=== PATIENT | female | born 1985 | race Caucasian/White ===

== ENCOUNTER 2019-12-06 17:30 | Emergency (ER) | payer OTHER ==
[2019-12-06] MEDS ORDERED: TYLENOL 325 MG PO STA (17:42)
[2019-12-06] MEDS ORDERED: TYLENOL 325 MG ONE (17:45)
--- NOTE | 2019-12-06 17:49 | ERPHSYRPT ---
- History of Present Illness Source: patient Physician History: Patient is a 34-year-old female who presents to our ED with complaints of dental pain and request to check her blood pressure. Patient is 14 weeks . Patient denies any issues with her . No pelvic pain or vaginal discharge. No vaginal bleeding. Patient states she was recently diagnosed with a urinary tract infection and is currently on Keflex. Patient is aware that the Keflex will cover her teeth. Patient states that she currently has an appointment scheduled with a dentist on 29 December. Patient has been taken Tylenol for pain. Her last Tylenol was at 11 AM today. Patient is here more so for evaluation of her blood pressure. Patient checked her blood pressure today and observe that his systolic blood pressure was 155. Patient has a history of preeclampsia. Patient became concerned and came to our ED. No associated chest pain or shortness of breath. No nausea vomiting or diaphoresis. No rash. No fever. No cough. No difficulty swallowing or eating. Patient able to tolerate p.o. well. Patient concerned with her blood pressure primarily and is requesting to have this checked. Timing/Duration: days (Patient has been experiencing dental pain for the past 2 days. Patient is aware that the involved tooth is fractured. Patient currently has a dental appointment scheduled.) Severity: moderate ENT Location: mouth Prearrival Treatment: no prearrival treatment (Tylenol at 11 AM today.) Modifying Factors: Improves With: nothing Associated Symptoms: No cough, No fever, No chills, No drooling, No ear drainage, No facial pain/swelling, No headache, No hearing loss, No jaw pain, No nasal congestion/drainage, No nasal foreign body, No neck pain, No poor fluid intake, No poor solids intake, No ringing of ears, No swollen glands, No sinus infection, No sore throat, No tooth pain Allergies/Adverse Reactions: clindamycin Allergy (Verified 12/06/19 17:38) - Review of Systems Constitutional: No Symptoms, No Fever, No Chills Eyes: No Symptoms Ears, Nose, & Throat: No Symptoms Respiratory: No Symptoms, No Cough, No Dyspnea Cardiac: No Symptoms, No Chest Pain, No Edema, No Syncope Abdominal/Gastrointestinal: No Symptoms, No Abdominal Pain, No Nausea, No Vomiting, No Diarrhea Genitourinary Symptoms: No Symptoms, No Dysuria Musculoskeletal: No Symptoms, No Back Pain, No Neck Pain Skin: No Symptoms, No Rash Neurological: No Symptoms, No Dizziness, No Focal Weakness, No Sensory Changes Psychological: No Symptoms Endocrine: No Symptoms Hematologic/Lymphatic: No Symptoms Immunological/Allergic: No Symptoms All Other Systems: Reviewed and Negative - Physical Exam General Appearance: no apparent distress, alert Eye Exam: bilateral eye: normal inspection, PERRL, EOMI Ear Exam: bilateral ear: auricle normal, canal normal, TM normal Nasal Exam: normal inspection Throat Exam: pharynx normal (Patient has carious teeth. Tooth #19 is fractured and decayed. No obvious swelling or abscess observed. Patient is currently on Keflex. No indication for additional antibiotics at this time.), moist mucus membranes, No excessive drooling, No mandibular swelling, No maxillary swelling, No pharynx swelling, No tongue swollen, No tonsillar exudate, No trismus, No voice changes Neck Exam: non-tender, supple, full range of motion, trachea midline, No limited range of motion, No lymphadenopathy (R), No stiff neck Cardiovascular/Respiratory Exam: normal breath sounds, regular rate/rhythm Abdominal Exam: non-tender, soft Neurologic Exam: alert, oriented x 3, sensation nml, No motor deficits Skin Exam: normal color, warm, dry SpO2 Interpretation: normal SpO2: 98 O2 Delivery: Room Air Ordered Tests: Medication Summary Discontinued Medications Generic Name Dose Route Start Last Admin Trade Name Freq PRN Reason Stop Dose Admin Acetaminophen 975 mg 12/06/19 17:42 Tylenol 325 Mg PO 12/06/19 17:43 STAT STA - Progress Progress: improved Progress Note: 12/06/19 17:51 Patient reassessed. Pain improved. No indication for additional antibiotics. Patient to continue Keflex for UTI as this will cross cover her teeth. No swelling of patient's lower extremities to indicate preeclampsia. Blood pressure well controlled. Patient will continue to take Tylenol as needed for dental pain. Patient will maintain her dental appointment to extract her involved tooth. All questions were answered. Patient voiced no other complaints or concerns at this time. Patient states she is ready for discharge. Counseled pt/family regarding: diagnosis, need for follow-up - Departure Departure Disposition: Home Clinical Impression: Carious teeth, Fractured tooth, Pain, dental Condition: Stable Critical Care Time: No Instructions: Dental Pain (DC), Tooth Decay, Adult (DC) Additional Instructions: Discharge/Care Plan SUJATA LAWTON was seen on 12/06/19 in the Emergency Room. The patient was counseled regarding Diagnosis,Lab results, Imaging studies, need for follow up and when to return to the Emergency Room. Prescriptions given: Discharge Note I have spoken with the patient and/or caregivers. I have explained the patient's condition, diagnosis and treatment plan based on the information available to me at this time. I have answered the patient's and/or caregiver's questions and addressed any concerns. The patient and/or caregivers have as good understanding of the patient's diagnosis, condition and treatment plan as can be expected at this point. The vital signs have been stable. The patient's condition is stable and appropriate for discharge from the emergency department. The patient will pursue further outpatient evaluation with the primary care physician or other designated or consulting physician as outlined in the discharge instructions. The patient and/or caregivers are agreeable to this plan of care and follow-up instructions have been explained in detail. The patient and/or caregivers have received these instruction. The patient/and or caregivers are aware that any significant change in condition or worsening of symptoms should prompt an immediate return to this or the closest emergency department or call 911.
[2019-12-06 17:50] VITALS: O2SAT 98
[2019-12-06 18:09] VITALS: BP 126/78; PULSE 91
== END 2019-12-06 18:16 | disposition home or self-care (01) ==
LOC: ED 17:30
DX: K02.9 Dental caries, unspecified (principal); S02.5XXA Fracture of tooth (traumatic), initial encounter for closed fracture; K08.89 Other specified disorders of teeth and supporting structures; Z33.1 Pregnant state, incidental
CPT/HCPCS: 99283; A9270-GY